=== PATIENT | male | born 1990 | race Caucasian/White ===

== ENCOUNTER → 2025-05-31 | Outpatient (CLI) | payer MEDICAID, SELFPAY ==
--- NOTE | 2025-05-31 15:26 | XR_ITS ---
EXAMINATION: Ankle, right. Technique: Ankle AP, oblique, lateral 3 views Date and time of exam: 05/31/2025 at 3:33 p.m. INDICATION: Right ankle pain and swelling after fall and twist injury 1 week ago COMPARISON: None FINDINGS: Severe soft tissue swelling is present at the lateral side of the ankle, and much milder on the medial side of the ankle. There is no evidence for fracture or dislocation. The ankle mortise is congruent. No evidence for osteochondral lesion or apparent osteoarthrosis. Small posterior calcaneal enthesophyte noted. Impression: Soft tissue swelling, most severe at the lateral malleolus, but no evidence for recent fracture or dislocation.
== END | disposition home or self-care (01) ==
LOC: SDIM 15:18
PROVIDERS: Referring Provider Emergency Medicine; Visit Provider Emergency Medicine
DX: S99.911A Unspecified injury of right ankle, initial encounter (principal); X50.1XXA Overexertion from prolonged static or awkward postures, initial encounter; M25.471 Effusion, right ankle
CPT/HCPCS: 73610